=== PATIENT | female | born 1980 | race Caucasian/White ===

== ENCOUNTER → 2021-12-13 09:19 | Outpatient (BNVA) | payer OTHER, SELFPAY | PROVIDERS: Visit Provider Physician Assistant | DX: Z13.89 Encounter for screening for other disorder (principal) ==

== ENCOUNTER → 2021-12-16 10:48 | Outpatient (BNVA) | payer OTHER, SELFPAY | PROVIDERS: Visit Provider Physician Assistant | DX: E66.01 Morbid (severe) obesity due to excess calories (principal); Z11.0 Encounter for screening for intestinal infectious diseases; I10 Essential (primary) hypertension; Z68.43 Body mass index [BMI] 50.0-59.9, adult | CPT/HCPCS: 99202; 99211 ==

== ENCOUNTER 2021-12-16 14:11 | Outpatient (REF) | payer OTHER, SELFPAY ==
[2021-12-19 11:45] LABS: H Pylori Breath Test Negative (Negative)
== END 2021-12-16 14:12 | disposition home or self-care (01) ==
LOC: HO.LNP 14:11
PROVIDERS: Visit Provider Physician Assistant
DX: Z01.818 Encounter for other preprocedural examination (principal); E66.01 Morbid (severe) obesity due to excess calories; I10 Essential (primary) hypertension
CPT/HCPCS: 83013

== ENCOUNTER → 2022-01-03 10:00 | Outpatient (BNVA) | payer OTHER, SELFPAY | PROVIDERS: Visit Provider Counselor Mental Health | DX: F43.22 Adjustment disorder with anxiety (principal); E66.01 Morbid (severe) obesity due to excess calories | CPT/HCPCS: 90791 ==

== ENCOUNTER → 2022-01-17 12:56 | Outpatient (BNVA) | payer OTHER, SELFPAY | PROVIDERS: Visit Provider Physician Assistant | DX: E66.01 Morbid (severe) obesity due to excess calories (principal); Z68.43 Body mass index [BMI] 50.0-59.9, adult | CPT/HCPCS: 99212 ==

== ENCOUNTER → 2022-01-18 08:07 | Outpatient (BNVA) | payer OTHER, SELFPAY | PROVIDERS: Visit Provider Dietitian, Registered | DX: E66.01 Morbid (severe) obesity due to excess calories (principal); Z68.43 Body mass index [BMI] 50.0-59.9, adult | CPT/HCPCS: 97802 ==

== ENCOUNTER 2022-02-14 09:08 | Outpatient (REF) | payer OTHER, SELFPAY ==
--- NOTE | ~2022-02-14 | US_ITS ---
EXAMINATION: US COMPLETE ABDOMEN WITH LIVER ELASTOGRAPHY CLINICAL INFORMATION: Obesity COMPARISON: None. TECHNIQUE: Real-time imaging of the abdominal viscera. Noninvasive ultrasound liver fibrosis assessment is performed using Zayda ElastPQ point quantification shear wave elastography (2D-SWE) with a C5-2 MHz transducer. Multiple elastography samples are obtained. Exam is limited due to patient body habitus. FINDINGS: PANCREAS: The visualized pancreatic head and body are normal in appearance. The remainder of the pancreas is obscured from visualization by the overlying bowel gas. ABDOMINAL AORTA: The proximal, middle, and distal aortic segments are normal in caliber. INFERIOR VENA CAVA: Visualized portions are normal. LIVER: Normal. The liver demonstrates normal size, contour and echogenicity. No focal lesion or intrahepatic biliary duct dilatation. The right lobe measures 17 cm in length. The left lobe measures 12 cm in length. Portal flow is normal/hepatopedal Shear wave liver elastography median stiffness is 1.5 m/s (reference: normal median stiffness is 1.3 m/s or less). IQR/median stiffness to assess sampling precision is 0.2 (reference: good quality data set is IQR/median stiffness of 0.15 or less). GALLBLADDER: Surgically removed COMMON BILE DUCT: Normal in caliber measuring 0.3 cm in diameter. RIGHT KIDNEY: Normal. No hydronephrosis. No renal calculi or focal parenchymal lesions. The kidney measures 11.4 cm in maximum dimension. LEFT KIDNEY: Normal. No hydronephrosis. No renal calculi or focal parenchymal lesions. The kidney measures 12.6 cm in maximum dimension. SPLEEN: Normal. The spleen measures 10.1 cm in maximum dimension. FREE FLUID: None. US/US abdomen comp w elastography IMPRESSION: 1. Impression: Limited due to patient body habitus. Particular, the tail the pancreas is not well visualized. 2. Liver elastography: Slightly limited due to sampling error. In the absence of other known clinical signs, rules out compensated advanced chronic liver disease. REFERENCE: Society of Radiologists in Ultrasound Liver Stiffness Thresholds (2020): LIVER STIFFNESS THRESHOLDS: *Liver Stiffness equal or less than 1.3 m/s: High probability of being normal. *Liver Stiffness less than 1.7 m/s: In the absence of other known clinical signs, rules out compensated advanced chronic liver disease. *Liver Stiffness 1.7-2.1 m/s: Suggestive of compensated advanced chronic liver disease but need further test for confirmation. *Liver Stiffness over 2.1 m/s: Rules in compensated advanced chronic liver disease. *Liver Stiffness over 2.4 m/s: Suggestive of clinically significant portal hypertension. QUALITY OF DATA SET: *IQR/Median value equal or less than 0.15 implies a quality data set. *IQR/Median value over 0.15 implies a poor quality data set. SIGNIFICANT CHANGE FROM PRIOR EXAM: Significant change if liver stiffness measurement is 10% or greater from prior exam. OTHER CONSIDERATIONS: The stage of liver fibrosis may be overestimated in the setting of acute hepatitis, liver inflammation, elevated liver function tests, hepatic vascular congestion, obstructive cholestasis, non-fasting state, and infiltrative diseases such as amyloidosis and lymphoma. In some patients with NAFLD, the liver stiffness thresholds for compensated advanced chronic liver disease may be lower. In causes other than viral hepatitis and NAFLD, liver stiffness thresholds are not well established.
--- NOTE | ~2022-02-14 | XR_ITS ---
EXAMINATION: XR CHEST CLINICAL INFORMATION: Preprocedural exam COMPARISON: Previous chest x-ray May 2018 TECHNIQUE: 2 views of the chest were obtained. FINDINGS: The cardiac and mediastinal contours are normal. The lungs are clear. There is no pleural effusion or pneumothorax. There are degenerative changes of the spine. XR/XR chest 2V IMPRESSION: No evidence for acute disease in the chest.
--- NOTE | ~2022-02-14 | FL_ITS ---
EXAMINATION: XR FLUOROSCOPY UPPER GI WITH AIR CLINICAL INFORMATION: Obesity. Preprocedural evaluation. COMPARISON: None TECHNIQUE: Routine upper GI air-contrast study was performed in upright and lying position. FINDINGS: Following oral administration of thick barium and effervescent granules there is normal propagation of bolus from the oral cavity through the pharynx, esophagus into stomach without any evidence of obstruction, narrowing or stricture. On On placing patient supine and prone lying the course, caliber and peristalsis of the stomach and the duodenum is normal. There is mild gastroesophageal reflux without hiatal hernia. The mucosal pattern of the stomach, duodenal bulb and the sweep is normal. FLUOROSCOPY TIME: 1.4 minutes DOSE AREA PRODUCT: 98.867 uGy-m2 (microgray-meter squared) FL/FL upper GI w air IMPRESSION: Unremarkable upper GI exam except for mild gastroesophageal reflux. No hiatal hernia seen.
--- NOTE | 2022-02-14 11:55 | ECG_ITS ---
Test Reason : Z01.818 Blood Pressure : / mmHG Vent. Rate : 079 BPM Atrial Rate : 079 BPM P-R Int : 154 ms QRS Dur : 076 ms QT Int : 410 ms P-R-T Axes : 029 040 087 degrees QTc Int : 470 ms Normal sinus rhythm Nonspecific ST and T wave abnormality When compared with ECG of 29-MAY-2018 11:33, Nonspecific ST and T wave abnormality present- Referred By: Melissa Clark Electronically Signed By:BIPIN EDMONDS
== END 2022-02-14 09:09 | disposition home or self-care (01) ==
LOC: HO.US 09:08
PROVIDERS: PCP Internal Medicine; Visit Provider Physician Assistant
DX: Z01.818 Encounter for other preprocedural examination (principal); E66.01 Morbid (severe) obesity due to excess calories; I10 Essential (primary) hypertension
CPT/HCPCS: 71046; 74246; 76705; 76981; 93005

== ENCOUNTER → 2022-03-01 09:21 | Outpatient (BNVA) | payer OTHER, SELFPAY | PROVIDERS: PCP Internal Medicine; Referring Provider Physician Assistant; Visit Provider Dietitian, Registered | DX: E66.01 Morbid (severe) obesity due to excess calories (principal); Z71.3 Dietary counseling and surveillance | CPT/HCPCS: 97803 ==

== ENCOUNTER → 2022-03-22 09:32 | Outpatient (BNVA) | payer OTHER, SELFPAY | PROVIDERS: PCP Internal Medicine; Visit Provider Physician Assistant | DX: E66.01 Morbid (severe) obesity due to excess calories (principal); Z68.43 Body mass index [BMI] 50.0-59.9, adult; I10 Essential (primary) hypertension | CPT/HCPCS: 99212 ==

== ENCOUNTER → 2022-05-31 10:20 | Outpatient (BNVA) | payer OTHER, SELFPAY | PROVIDERS: PCP Internal Medicine; Visit Provider Physician Assistant | DX: E66.01 Morbid (severe) obesity due to excess calories (principal); Z68.43 Body mass index [BMI] 50.0-59.9, adult; I10 Essential (primary) hypertension | CPT/HCPCS: 99212 ==

== ENCOUNTER 2024-09-09 10:23 | Outpatient (REF) | payer OTHER, SELFPAY ==
[2024-09-09 14:34] LABS: MANUAL DIFF FLAG NO
[2024-09-09 14:39] LABS: Basophils Absolute Auto 0.1 X10*3/uL (0.0-0.2); Basophils Percent Auto 1.2 % (0-2); Eosinophils Absolute Auto 0.1 X10*3/uL (0.0-0.4); Hematocrit 39.2 % (37.0-47.0); Hemoglobin 12.4 g/dl (12.0-16.0); Imm Gran Abs Auto 0.02 X10*3/uL (0.00-0.03); Imm Gran Pct Auto 0.3 % (0.0-0.4); Lymphocytes Absolute Auto 1.9 X10*3/uL (1.2-4.9); Lymphocytes Percent Auto 27.4 % (20-40); Mean Corpuscular HGB Conc 31.6 g/dl (31.0-35.0); Mean Corpuscular Hemoglobin 28.8 pg (27.0-33.0); Mean Corpuscular Volume 91.2 fL (80.0-98.0); Mean Platelet Volume 10.6 fL (9.4-12.3); Monocytes Absolute Auto 0.7 X10*3/uL (0.1-1.2); Monocytes Percent Auto 9.5 % (2-11); Neutrophils Absolute Auto 4.1 x10*3/uL (2.0-8.3); Neutrophils Percent Auto 59.6 % (45-73); Platelet Count 345 X10*3/uL (160-400); Red Cell Distribution Width 17.1 % (11.0-16.0); White Blood Count 6.9 X10*3/uL (4.8-10.8)
[2024-09-09 14:46] LABS: Estimated Average Glucose 111 mg/dL; Hemoglobin A1C 119.6772 umol/L; Hemoglobin A1c % 5.5 % (<6.0); Total Hemoglobin (HGBA1C) 3254.2465 umol/L
[2024-09-09 14:56] LABS: Alanine Aminotransferase 12 U/L (0-31); Albumin Level 3.9 g/dL (3.5-5.0); Alkaline Phosphatase 67 U/L (39-117); Anion Gap 9 (12-20); Aspartate Amino Transferase 21 U/L (5-31); Bilirubin Total 0.6 mg/dL (0.0-1.0); Blood Urea Nitrogen 13 mg/dL (9-16); Calcium 9.5 mg/dL (8.4-10.2); Carbon Dioxide 31 mmol/L (22-29); Chloride 106 mmol/L (96-108); Cholesterol 149 mg/dL (<200); Estimated Glomerular Filt Rate > 60; Glucose Random 90 mg/dL (60-115); HDL Cholesterol 45 mg/dL (>40); Iron 92 mcg/dL (30-160); LDL Cholesterol Calculated 93 mg/dL (<100); Percent Iron Saturation 30 % (15-50); Potassium 3.7 mmol/L (3.3-5.1); Sodium 142 mmol/L (135-145); Total Iron Binding Capacity 311 mcg/dL (228-428); Total Protein 6.9 g/dL (6.5-8.0); Triglycerides 56 mg/dL (<150); Unsaturated Iron Binding 219 ug/dL
[2024-09-09 15:12] LABS: TSH reflex Free T4 2.19 uIU/mL (0.32-4.0)
[2024-09-09 15:24] LABS: Folate 13.6 ng/mL (> or = 4.0); Vitamin B12 401 pg/mL (200-900)
[2024-09-10 03:57] LABS: HIV AB/AG Nonreactive (Nonreactive); HIV Num 1 0.05 S/CO (0.00-0.99); ~HepC Num1 0.13 S/CO (0.00-0.79); ~Hepatitis C Antibody Nonreactive (Nonreactive)
== END 2024-09-09 10:24 | disposition home or self-care (01) ==
LOC: HO.CHCLDS 10:23
PROVIDERS: Visit Provider Internal Medicine
DX: I10 Essential (primary) hypertension (principal); D50.9 Iron deficiency anemia, unspecified
CPT/HCPCS: 36415; 80053; 80061; 82607; 82746; 83036; 83540; 84443; 85025; 86803; 87389

== ENCOUNTER 2025-09-09 09:55 | Outpatient (REF) | payer MEDICAID, SELFPAY ==
--- OUTSIDE RECORDS SUMMARY | 2025-09-09 12:55 | XMS_ITS | Clinical Summary ---
Author Organization [facility] Address [address] [place] [address] Phone Care Team Providers Care Student Name Role Phone Tiffany Gale MD Primary Care Provider [phone] Allergies Active Allergy Reactions Criticality Noted Date Comments Amlodipine 02/23/2023 Penicillins 02/23/2023 Medications acetaminophen (TYLENOL) 500 mg tablet TAKE 2 TABLETS BY MOUTH EVERY 8 HOURS 4 Active carvediloL (COREG) 6.25 mg tablet Take 1 Tablet by mouth 2 times daily (with meals). Active diclofenac-met salicyl-mentho L (DicloPR) 1-30-10 % combo pack,cream and gel Apply topically. Active ibuprofen (ADVIL,MOTRIN) 800 mg tablet Take 1 Tablet by mouth every 8 hours as needed. Active metFORMIN (GLUCOPHAGE) 500 mg tablet Take 1 Tablet by mouth 2 times daily (with meals). Active olmesartan-amL ODIPin-hcthiaz id 40-10-12.5 mg tablet Active pantoprazole (PROTONIX) 40 mg EC tablet TAKE 1 TABLET BY MOUTH DAILY 4 Active wheat dextrin (Benefiber Clear SF, dextrin,) 3 gram/3.5 gram powder in packet Take 4 g by mouth daily. 4 Active zinc glycinate 30 mg capsule Take 1 Capsule by mouth daily. 4 Active NORETHINDRONE ACETATE ORAL Take by mouth. Active ferrous sulfate 324 mg (65 mg elemental iron) EC tablet Take 1 Tablet by mouth daily. Active nystatin (MYCOSTATIN) 100,000 unit/gram powder Apply topically 2 (two) times a day. 15 g 5 04/22/20 Active tirzepatide, weight loss, (Zepbound) 10 mg/0.5 mL injection Inject 0.5 mL (10 mg total) under the skin every 7 (seven) days. 2 mL 5 10/05/19 Active tirzepatide, weight loss, (Zepbound) 5 mg/0.5 mL injection Inject 0.5 mL (5 mg total) under the skin every 7 (seven) days. 2 mL 5 09/05/20 Discontinue d(Dose adjustment) tirzepatide, weight loss, (Zepbound) 7.5 mg/0.5 mL injection Inject 0.5 mL (7.5 mg total) under the skin every 7 (seven) days. 2 mL 5 08/10/20 tirzepatide, weight loss, (Zepbound) 10 mg/0.5 mL injection Inject 0.5 mL (10 mg total) under the skin every 7 (seven) days. 2 mL 5 09/05/20 Discontinue d(Reorder) Active Problems Problem Noted Date Diagnosed Date Binge eating disorder 05/20/2025 Chronic venous stasis 05/19/2025 Headache 05/19/2025 Vitamin D deficiency 05/19/2025 Osteoarthritis of right knee 01/24/2025 Bariatric surgery status 07/30/2024 Chronic pain of right knee 07/11/2024 Class 2 severe obesity due t o excess calories with serious comorbidity and body mass index (BMI) of 39.0 to 39.9 in adult 06/18/2024 Knee osteoarthritis 07/06/2016 Essential hypertension 03/05/2015 Hypothyroidism (acquired) 03/05/2015 Surgical History Surgery Date Site/Laterality Comments OTHER SURGICAL HISTORY PROCEDURE: HISTORY OTHER; COMMENT: c sectioh CHOLECYSTECTOMY PROCEDURE: DE LAPAROSCOPY SURG CHOLECYSTECTOMY Medical History Medical History Date Comments Binge eating disorder DX:Binge e ating disorder Chronic venous stasis DX:Chronic venous stasis Dysfunctional uterine bleeding D X:Dysfunctional uterine bleeding History of varicose veins DX:His tory of varicose veins Essential (primary) hypertension DX:Essential (primary) hypertension Headache DX:Headache Hypothyroidism DX:Hypothyroidis m Iron deficiency anemia DX:Iron d eficiency anemia Osteoarthritis of right knee DX: Osteoarthritis of right knee Severe obesity (CMS/HCC V24, CMS/HCC V28) DX:Severe obesity (HCC) Vitamin D deficiency DX:Vitamin D deficiency Family History Medical History Relation Name Comments Other: heart Mother Relation Name Status Comments Mother Social History Tobacco Use Types Packs/Day Years Used Date Smoking Tobacco: Never Smokeless Tobacco: Never Alcohol Use Standard Drinks/Week Comments Never 0 (1 standard drink = 0.6 oz pur e alcohol) Comments Unknown Sex and Gender Information Value Date Recorded Sex Assigned at Not on file Legal Sex Female 4:54 AM EST Gender Identity Not on file Sexual Orientation Not on file Last Filed Vital Signs Vital Sign Reading Time Taken Comments Blood Pressure 127/82 04/22/2025 11:27 AM EDT Pulse 85 04/22/2025 11:27 AM EDT Temperature 36.8 C (98.3 F) 07/30/2024 8:57 AM EST Respiratory Rate - - Oxygen Saturation - - Inhaled Oxygen Concentration - - Weight 110 kg (241 lb 9.6 oz) 04/22/2025 11:27 A M EDT Height 167.6 cm (5' 6 ) 04/22/2025 11:27 AM EDT Body Mass Index 39 04/22/2025 11:27 AM EDT Plan of Treatment Upcoming Encounters Date Type Department Care Team (Late st Contact Info) Description 09/15/2025 3:15 PM EST Office Visit Bariatric Surgery - [address] [place] [address] [facility] Sim PA [address] [place] [phone] Health Maintenance Due Date Last Done Comments Breast Cancer Screening 1978 Hepatitis B Vaccines (1 of 3 - 19+ 3-dose series) 1997 Cervical Cancer Screening: Pap Smear 1999 Social Influencers of Health Screening 10/11/2023 Depression Screening 09/11/2024 DTaP,Tdap,and Td Vaccines (2 - Td or Tdap) 02/20/2025 02/20/2015 COVID-19 Vaccine ( season) 2025 08/27/2021, 10/30/2020, 10/09/2020 Influenza Vaccine (#1) 2025 , 10/26/2023, 07/23/2022, Additional history exists Hypertension/CHF/CAD Annual BMP Blood Test 11/05/2025 11/05/2024, 09/09/2024, 05/21/2024, Additional history exists Colorectal Cancer Screening: FIT-DNA (Cologuard) 11/01/2027 11/01/2024 Cholesterol Screening (Lipid Panel) 09/09/2029 09/09/2024, 05/12/2023 RSV Immunization Adult Patients (1 - 1-dose 75+ series) 2053 Pneumococcal Vaccine: Pediatrics (0 to 5 Years) and At-Risk Patients (6 to 49 Years) Aged Out 11/29/2022 No longer eligible based on patient's age to complete this topic HPV Vaccines Completed 03/04/2024, 10/13, 06/06/2023 HIV Screening Completed 09/09/2024 Hepatitis C Screening Completed 09/09/2024 HIB Vaccines Aged Out No longer eligi ble based on patient's age to complete this topic Hepatitis A Vaccines Aged Out No long er eligible based on patient's age to complete this topic IPV Vaccines Aged Out No longer eligi ble based on patient's age to complete this topic MMR Vaccines Aged Out No longer eligi ble based on patient's age to complete this topic Meningococcal ACWY Vaccine Aged Out N o longer eligible based on patient's age to complete this topic Meningococcal B Vaccine Aged Out No l onger eligible based on patient's age to complete this topic RSV Immunization Patients Under 20 months Aged Out No longer eligible based on patient's age to complete this topic Varicella Vaccines Aged Out No longer eligible based on patient's age to complete this topic Procedures Procedure Name Priority Date/Time Associated Diagnosis Comments COMPREHENSIVE METABOLIC PANEL Routine 11/05/2024 10:46 AM EST Class 3 severe obesity due to excess calories with serious comorbidity and body mass index (BMI) of 45.0 to 49.9 in adult (CMS/HCC V24, CMS/HCC V28) LIPID PANEL Routine 05/12/2023 from Last 3 Months or Most Recently Relevant to Health Maintenance Results * Comprehensive metabolic panel (11/05/2024 10:46 AM EST) Sodium 141 133 - 145 mmol/L LAB CHEMISTRY METHOD 11/05/2024 3:32 PM [facility] Potassium 3.7 3.5 - 5.5 mmol/L LAB CHEMISTRY METHOD 11/05/2024 3:32 PM [facility] Chloride 106 96 - 110 mmol/L LAB CHEMISTRY METHOD 11/05/2024 3:32 PM [facility] CO2 27 21 - 32 mmol/L LAB CHEMISTRY METHOD 11/05/2024 3:32 PM [facility] Anion Gap 8 3 - 11 LAB CHEMISTRY METHOD 11/05/2024 3:32 PM [facility] Glucose 81 70 - 100 mg/dL LAB CHEMISTRY METHOD 11/05/2024 3:32 PM [facility] BUN 15 5 - 25 mg/dL LAB CHEMISTRY METHOD 11/05/2024 3:32 PM [facility] Creatinine 0.69 0.50 - 1.10 mg/dL LAB CHEMISTRY METHOD 11/05/2024 3:32 PM [facility] eGFR 109 >=60 mL/min/1. 73m2 LAB CHEMISTRY METHOD 11/05/2024 3:32 PM [facility] Comment:Calculation based on the Chronic Kidney Disease Epidemiology Collaboration (CKD-EPI) equation refit without adjustment for race. BUN/Creatinine Ratio 21.7 LAB CHEMISTRY METHOD 11/05/2024 3:32 PM [facility] Calcium 9.5 8.5 - 10.5 mg/dL LAB CHEMISTRY METHOD 11/05/2024 3:32 PM [facility] AST (SGOT) 13 10 - 42 unit/L LAB CHEMISTRY METHOD 11/05/2024 3:32 PM [facility] ALT (SGPT) 15 10 - 60 unit/L LAB CHEMISTRY METHOD 11/05/2024 3:32 PM [facility] Alkaline Phosphatase 69 42 - 121 unit/L LAB CHEMISTRY METHOD 11/05/2024 3:32 PM [facility] Total Protein 6.8 6.0 - 8.0 g/dL LAB CHEMISTRY METHOD 11/05/2024 3:32 PM [facility] Albumin 3.8 3.2 - 5.0 g/dL LAB CHEMISTRY METHOD 11/05/2024 3:32 PM [facility] Total Bilirubin 0.6 0.0 - 1.4 mg/dL LAB CHEMISTRY METHOD 11/05/2024 3:32 PM [facility] Blood Venous blood specimen / Unknown Venipuncture / Unknown 11/05/2024 10:46 AM EST 11/05/2024 10:46 AM EST [facility] LAB BLOOD ORDERABLES Final R esult [facility] [address] [place] [address], * (ABNORMAL) Lipid panel (05/12/2023) LDL/HDL Ratio 3 0 - 4 Triglycerides 45 0 - 150 mg/dL Cholesterol 130 0 - 200 mg/dL HDL 38(A) >=40 mg/dL LDL Cholesterol 83 0 - 100 mg/dL Blood Venous blood specimen / Unknown Historical Provider LAB BLOOD ORDERABLES Serena l Result from Last 3 Months or Most Recently Relevant to Health Maintenance Insurance MEDICAID - [place] Care Teams Student Relationship Specialty Start Date End Date Tiffany Gale MD [address] [place] [phone] PCP - General Internal Medicine 01/28/25
--- OUTSIDE RECORDS SUMMARY | 2025-09-09 12:55 | XMS_ITS | Encounter Summary ---
Author Organization [employer] Address [address] [place] [address] Care Team Providers Care Producer Director Name Role Phone Vinnie Unger MD Primary Care Prov ider Encounter Details Date Type Department Care Team (Late st Contact Info) Description 10/10/2024 Orders Only [facility] [address] [place] [address] Provider, MD Dashawn Social History Tobacco Use Types Packs/Day Years Used Date Smoking Tobacco: Never Smokeless Tobacco: Never Alcohol Use Standard Drinks/Week Comments Never 0 (1 standard drink = 0.6 oz pur e alcohol) Depression Answer Date Recorded Patient Health Questionnaire-9 Score 0 07/11/2024 Patient Health Questionnaire-9 Score 0 07/11/2024 Last PHQ-9: Questionnaire Data Not on file 1 Housing Stability Answer Date Recorded What is your housing situation today? I have [place] 07/11/[address] you li ve. Do you have problems with any of the following? None of the above 07/11/2024 Food Insecurity Answer Date Recorded Within the past 12 months, y ou worried that your food would run out before you got money to buy more: Never True 07/11/2024 Within the past 12 months,th e food you bought just didn't last and you didn't have enough money to get more: Never True Transportation Answer Date Recorded In the past 12 months, has l ack of transportation kept you from medical appts, meetings, work or from getting things needed for daily living? No 07/11/2024 Utilities Answer Date Recorded In the past 12 months, has t he electric, gas, oil or water company threatened to shut off services in your home? No 07/11/2024 Depression Answer Date Recorded Patient Health Questionnaire-2 Score 0 07/11/2024 Internet Access Answer Date Recorded Internet Access Q1 Yes 07/11/2024 Internet Access Q2 Not on file 07/11/2024 Comments Unknown Sex and Gender Information Value Date Recorded Sex Assigned at Female 07/11/2022 10:28 AM EDT Legal Sex Female 10:28 AM EDT Gender Identity Female 02/23/2024 9:38 AM EDT Sexual Orientation Straight 02/23/2024 9: 38 AM EDT documented as of this encounter Plan of Treatment Not on file documented as of this encounter Procedures Procedure Name Priority Date/Time Associated Diagnosis Comments HM PAP/HPV Routine 01/19/2022 11:03 AM EDT documented in this encounter Results * HM PAP/HPV (01/19/2022 11:03 AM EDT) us Historical Provider HEALTH MAINTENANCE Final Result documented in this encounter Visit Diagnoses Not on filedocumented in this encounter Additional Health Concerns Assessment Noted Time PHQ-9 Depression Total Score: 0 07/11/20 10:00 AM EDT documented as of this encounter Care Teams Producer Director Relationship Specialty Start Date End Date Vinnie Unger MD [address] [place] [phone] PCP - General Internal Medicine 07/12/24 documented as of this encounter
--- OUTSIDE RECORDS SUMMARY | 2025-09-09 12:55 | XMS_ITS | Clinical Summary ---
Author Organization [employer] Address [address] [facility] [address] [place] [address] Care Team Providers Care Inspector Government Property Name Role Phone Vinnie Unger MD Primary Care Prov ider Allergies Active Allergy Reactions Criticality Noted Date Comments Penicillin G 07/11/2024 Medications Blood Pressure kit 1 kit Once per day. 1 kit 4 Active olmesartan-hydr oCHLOROthiazide (Benicar HCT) 20-12.5 MG tablet Take 1 tablet by mouth Once per day. 90 tablet 3 5 03/07/20 26 Active nystatin (Mycostatin) 841903 UNIT/GM powder Apply topically 2 times daily. 120 g 3 5 05/05/20 26 Active ibuprofen 800 MG tablet TAKE 1 TABLET BY MOUTH 3 TIMES DAILY. 90 tablet 5 Active Active Problems Problem Noted Date Diagnosed Date Physical exam 08/19/2024 Assessment & Plan (08/19/2024 1:37 PM EST): Unremarkable physical exam, found with slightly elevated blood pressure, told to continue current oral therapy, keep bp log, new labs ordered, will follow up in 1 month Encounter for medical examination to establish c are 07/11/2024 Assessment & Plan (07/11/2024 11:13 AM EDT): Not seen by pcp in over 8 months Hx of hospitalization: [facility] , sleeve gastrectomy 2023 Er visit:- Pmhx: Chronic severe right knee OA, obesity, htn Pshx: [facility] , cholecystectomy 2001, tonsillectomy 1980, sleeve gastrectomy 2023, All: PNC Meds: carvedilol 6.25mg bid, norethidone 5mg daily, ibuprofen 800mg tid A0 Primary hypertension 07/11/2024 Assessment & Plan (07/10/2025 10:52 AM EDT): Controlled, keep low sodium diet and exercise as tolerated, keep blood pressure log, target <140/90, follow up in 3-4 months Assessment & Plan (01/09/2025 10:55 AM EDT): Controlled, keep low sodium diet and exercise as tolerated, keep bp log, target <140/90, no changes will be made, she continues losing weight which is beneficial on the alf, follow up in 3 months Assessment & Plan (10/01/2024 1:27 PM EST): Contriolled, will decrease treatment, she refers has been taking half pill daily, and her bp results have remained below 140/90, call back if uncntrolled, will follow up in 3 months Assessment & Plan (08/19/2024 1:32 PM EST): Slightly elevated, will send a new bp kit, told to keep low sodium diet, exercise as tolerated, follow up in 1 month with new labs Assessment & Plan (07/11/2024 11:14 AM EDT): Told to keep a bp log for next appointment, keep low sodium diet, she has lost over 100lbs since surgery, will follow up on next visit Chronic pain of right knee 07/11/2024 Assessment & Plan (07/11/2024 11:15 AM EDT): Patient followed by [facility], she is getting steroid injections, has been losing weight, follow up ortho reccomendations Screening for colon cancer 07/11/2024 Assessment & Plan (07/11/2024 11:20 AM EDT): Will refer to GI, for screening colon cancer Encounter for screening mamm ogram for malignant neoplasm of breast 07/11/2024 Assessment & Plan (07/11/2024 11:21 AM EDT): Patient will make schedule for screening mammogram Screening for cervical cancer 07/11/2024 Assessment & Plan (07/11/2024 11:22 AM EDT): Patient had pap smear with ob-box puller, she will bring results on next appoinment, due on 2027 Encounters Date Type Department Care Team Description 08/19/2025 2:45 PM EST Telemedicine [facility] [address] [place] [address] Vinnie Unger MD Primary hypertension (Primary Dx) 08/19/2025 Travel 08/18/2025 Telephone [facility] [address] [place] [address] Vinnie Unger MD chart prep 08/18/2025 Travel from Last 3 Months Immunizations Immunization Administration Dates Next Due Influenza, Injectable, MDCK, preservative free 1 10/20/2023 Family History Medical History Relation Name Comments Hypertension Father Stomach cancer Maternal Grandfather Diabetes Mother Fibromyalgia Mother Heart failure Mother Hypertension Mother Cancer Mother's Brother Relation Name Status Comments Father Maternal Grandfather Mother Mother's Brother Social History Tobacco Use Types Packs/Day Years Used Date Smoking Tobacco: Never Smokeless Tobacco: Never Tobacco Cessation:Counseling Given: Not Answered Alcohol Use Standard Drinks/Week Comments Never 0 (1 standard drink = 0.6 oz pur e alcohol) Depression Answer Date Recorded Patient Health Questionnaire-9 Score 0 08/19/2025 Patient Health Questionnaire-9 Score 0 08/19/2025 Last PHQ-9: Questionnaire Data Not on file 1 10/20/2024 Housing Stability Answer Date Recorded What is your housing situation today? I have [place] 08/19/[address] you li ve. Do you have problems with any of the following? None of the above 08/19/2025 Food Insecurity Answer Date Recorded Within the past 12 months, y ou worried that your food would run out before you got money to buy more: Never True 08/19/2025 Within the past 12 months,th e food you bought just didn't last and you didn't have enough money to get more: Never True 05/2025 Transportation Answer Date Recorded In the past 12 months, has l ack of transportation kept you from medical appts, meetings, work or from getting things needed for daily living? No 08/19/2025 Utilities Answer Date Recorded In the past 12 months, has t he electric, gas, oil or water company threatened to shut off services in your home? No 08/19/2025 Depression Answer Date Recorded Patient Health Questionnaire-2 Score 0 08/19/2025 Internet Access Answer Date Recorded Internet Access Q1 Yes 08/19/2025 Internet Access Q2 Not on file 08/19/2025 Comments Unknown Sex and Gender Information Value Date Recorded Sex Assigned at Female 07/11/2022 10:28 AM EDT Legal Sex Female 10:28 AM EDT Gender Identity Female 02/23/2024 9:38 AM EDT Sexual Orientation Straight 02/23/2024 9: 38 AM EDT Last Filed Vital Signs Vital Sign Reading Time Taken Comments Blood Pressure 114/77 08/19/2025 2:48 PM EST Pulse 72 08/19/2024 9:40 AM EST Temperature 36.8 C (98.3 F) 08/19/2024 9:40 AM EST Respiratory Rate 16 08/19/2024 9:40 AM EST Oxygen Saturation - - Inhaled Oxygen Concentration - - Weight 121 kg (266 lb) 01/09/2025 10:50 AM EDT Height 167.6 cm (5' 6 ) 08/19/2024 9:40 AM EST Body Mass Index 42.93 08/19/2024 9:40 AM EST Plan of Treatment Health Maintenance Due Date Last Done Comments CT Colonography 1978 Colonoscopy 1978 FIT 1978 Sigmoidoscopy 1978 Alcohol/Substance Use Screening 1990 Family Planning (PISQ) 1993 Mammogram 2018 DTaP/Tdap/Td Vaccines (2 - Td or Tdap) 02/20/2025 02/20/2015 COVID-19 Vaccine ( season) 2025 08/27/2021, 10/30/2020, 10/09/2020 Hepatitis B Vaccines (2 of 2 - CpG 2-dose series) 08/13/2025 07/16/2025 Tobacco Screening 08/19/2025 08/19/2024 FOBT 11/01/2025 11/01/2024 Disability Screening 08/18/2026 08/18/2025 Depression Screening 08/19/2026 08/19/2025, 08/19/20 25 SDOH Screening 08/19/2026 08/19/2025 Cervical Cancer Screening 01/19/2027 HPV/Cotest 01/19/2027 Pap Smear 01/19/2027 01/19/2022 Colorectal Cancer Screening 11/01/2027 FIT DNA/Cologuard 11/01/2027 11/01/2024 Zoster Vaccines (1 of 2) 2028 Lipid Panel 09/09/2029 09/09/2024 RSV Patients and Patients Aged 60 years or older (1 - 1-dose 75+ series) 2053 Pneumococcal Vaccine: Pediatrics (0 to 5 Years) and At-Risk Patients (6 to 49) Years Aged Out 11/29/2022 No longer eligible based on patient's age to complete this topic HPV Vaccines Completed 03/04/2024, 02/10, 11/01/2023, Additional history exists HIV Screening Completed 09/09/2024 Hepatitis C Screening Completed 09/09/2024 Influenza Vaccine Completed 07/16/2025, , 10/26/2023, Additional history exists HIB Vaccines Aged Out No longer eligi [...] patient's age to complete this topic Meningococcal Vaccine Aged Out No miguel angel damaris eligible based on patient's age to complete this topic RSV under 20 months Aged Out No longe r eligible based on patient's age to complete this topic Rotavirus Vaccines Aged Out No longer eligible based on patient's age to complete this topic Procedures Procedure Name Priority Date/Time Associated Diagnosis Comments LAB COLOGUARD COLON CANCER SCREEN Routine 11/01/2024 5:31 PM EST Screening for colon cancer HEPATITIS C AB W/REFL TO HCV RNA, QN, PCR Routine 09/09/2024 10:24 AM EST Primary hypertension HIV 1/2 ANTIGEN/ANTIBODY, FOURTH GENERATION W/RFL Routine 09/09/2024 10:24 AM EST Primary hypertension LIPID PANEL, STANDARD Routine 09/09/2024 10:24 AM EST Primary hypertension HM PAP/HPV Routine 01/19/2022 11:03 AM EDT from Last 3 Months or Most Recently Relevant to Health Maintenance Results * Cologuard?? colon cancer screening (11/01/2024 5:31 PM EST) Pathologist [facility] Cologuard Result Negative Negative 11/06/19 7:53 AM EST [employer] (CLIA #:[id number]) Comment: NEGATIVE TEST RESULT. A negative Cologuard result indicates a low likelihood that a colorectal cancer (CRC) or advanced adenoma (adenomatous polyps with more advanced pre-malignant features) is present. The chance that a person with a negative Cologuard test has a colorectal cancer is less than 1 in 1500 (negative predictive value >99.9%) or has an advanced adenoma is less than 5.3% (negative predictive value 94.7%). These data are based on a prospective cross-sectional study of 10,000 individuals at average risk for colorectal cancer who were screened with both Cologuard and colonoscopy. (Tawana Maya al, N Engl J Med 2014;370(14):2903-6716) The normal value (reference range) for this assay is negative. COLOGUARD RE-SCREENING RECOMMENDATION: Periodic colorectal cancer screening is an important part of preventive healthcare for asymptomatic individuals at average risk for colorectal cancer. Following a negative Cologuard result, the [place] [employer] and U.S. Multi-Society Task Force screening guidelines recommend a Cologuard re-screening interval of 3 years. References: [place] [employer] Guideline for Colorectal Cancer Screening: https://www.cancer.org/cancer/uppac-nhmkgx-bisjoy/giqbgtaui-lyrgfffcr-hyzsxht/ac s-rec ommendations.html.; Wu DK, Christa CR, Zane DIAZ, Colorectal Cancer Screening: Recommendations for Physicians and Patients from the U.S. Multi-Society Task Force on Colorectal Cancer Screening , Am J Gastroenterology 2017; 112:9370-5425. TEST DESCRIPTION: Composite algorithmic analysis of stool DNA-biomarkers with hemoglobin immunoassay. Quantitative values of individual biomarkers are not reportable and are not associated with individual biomarker result reference ranges. Cologuard is intended for colorectal cancer screening of adults of either sex, 45 years or older, who are at average-risk for colorectal cancer (CRC). Cologuard has been approved for use by the U.S. FDA. The performance of Cologuard was established in a cross sectional study of average-risk adults aged 50-84. Cologuard performance in patients ages 45 to 49 years was estimated by sub-group analysis of near-age groups. Colonoscopies performed for a positive result may find as the most clinically significant lesion: colorectal cancer [4.0%], advanced adenoma (including sessile serrated polyps greater than or equal to 1cm diameter) [20%] or non- advanced adenoma [31%]; or no colorectal neoplasia [45%]. These estimates are derived from a prospective cross-sectional screening study of 10,000 individuals at average risk for colorectal cancer who were screened with both Cologuard and colonoscopy. (Tawana Dorman et al, N Engl J Med 2014;370(14):7243-2170.) Cologuard may produce a false negative or false positive result (no colorectal cancer or precancerous polyp present at colonoscopy follow up). A negative Cologuard test result does not guarantee the absence of CRC or advanced adenoma (pre-cancer). The current Cologuard screening interval is every 3 years. ([place] [employer] and U.S. Multi-Society Task Force). Cologuard performance data in a 10,000 patient pivotal study using colonoscopy as the reference method can be accessed at the following location: www.[employer].com/results. Additional description of the Cologuard test process, warnings and precautions can be found at www.[employer].com. Stool specimen (specimen) 11/01/2024 5:31 PM EST 11/04/2024 11:12 AM EST Vinnie Hair MD LAB MOLECULAR DIAG NOSTICS ORDERABLES Final Result Performing Organization Address City/[facility]/ZIP Co de Phone Number [facility] (CLIA #:[id number]) [address] [place] [address], * Hepatitis C Antibody with Reflex to HCV, RNA, Quantitative, Real-Time PCR (09/09/2024 10:24 AM EST) Hepatitis C Antibody Nonreactive Nonreactive [facility] Comment:Antibodies to HCV no t detected; does not exclude early acuteHCV infection. Blood Venous blood specimen / Unknown 09/09/2024 10:24 AM EST 09/09/2024 2:31 PM EST Vinnie Hair MD LAB BLOOD ORDERABL ES Final Result Performing Organization Address [facility]/ZIP Co de Phone Number [facility] [address] [place] [phone] * HIV-1/2 Antigen and Antibodies, Fourth Generation, with Reflexes (09/09/2024 10:24 AM EST) HIV AB/AG Nonreactive Nonreactive [facility] Comment:HIV-1 p24 Ag and/or HIV-1/HIV-2 Ab not detected.A test result that is nonreactive does not exclude thepossibility of exposure to or infection with HIV-1 and/orHIV-2. Nonreactive results in this assay for individualswith prior exposure to HIV-1 and/or HIV-2 may be due toantigen and antibody levels that are below the limit ofdetection of this assay.The [employer] HIV Ag/Ab Combo assay result andsupplemental assay results should be interpreted inconjunction with the patient's clinical presentation,history and other laboratory results. If the results areinconsistent with clinical evidence, additional testing issuggested to confirm the result. Blood Venous blood specimen / Unknown 09/09/2024 10:24 AM EST 09/09/2024 2:31 PM EST Vinnie Hair MD LAB BLOOD ORDERABL ES Final Result Performing Organization Address [facility] de Phone Number [facility] [address] [place] [phone] * Lipid Panel, Standard (09/09/2024 10:24 AM EST) Triglycerides 56 <150 mg/dL [facility] Comment:Desirable Triglyceri de: less than 150 mg/dLBorderline High Triglyceride 150-199 mg/dLHigh Triglyceride: 200-499 mg/dLVery High Triglyceride: greater than or equal to 5OO mg/dL Cholesterol 149 <200 mg/dL [facility] Comment:Desirable Cholestero l: less than 200 mg/dLBorderline High Cholesterol: 200-239 mg/dLHigh Cholesterol: greater than 239 mg/dL LDL Cholesterol Calculated 93 <100 mg/dL [facility] Comment:Desirable LDL: less than 100 mg/dLNear Optimal/Above Optimal LDL: 110- 129 mg/dLBorderline High LDL: 130-159 mg/dLHigh LDL: 160-189 mg/dLVery High LDL: greater than or equal to 190 mg/dL HDL Cholesterol 45 >40 mg/dL [facility] Comment:Desirable HDL: great er than 40 mg/dL Note: This HDL assay may give artificially low results in patients with liver disease. Blood Venous blood specimen / Unknown 09/09/2024 10:24 AM EST 09/09/2024 2:31 PM EST Vinnie Hair MD LAB BLOOD ORDERABL ES Final Result Performing Organization Address [facility]/ZIP Co de Phone Number [facility] [address] [place] [phone] * HM PAP/HPV (01/19/2022 11:03 AM EDT) Historical Provider HEALTH MAINTENANCE Final Result from Last 3 Months or Most Recently Relevant to Health Maintenance Insurance [facility] C3 Care Teams Inspector Government Property Relationship Specialty Start Date End Date Vinnie Unger MD [address] [place] [phone] PCP - General Internal Medicine 07/12/24
--- OUTSIDE RECORDS SUMMARY | 2025-09-09 12:55 | XMS_ITS | Encounter Summary ---
Author Organization [employer] Address [address] [facility] [address] [place] [address] Care Team Providers Care Molded Frames Assembler Name Role Phone Vinnie Unger MD Primary Care Prov ider Reason for Visit * Reason Onset Date Comments Med Refill 02/24/2025 Encounter Details Date Type Department Care Team ([facility] st Contact Info) Description 02/24/2025 Refill [facility] [address] [place] [address] Vinnie Unger MD [address] [place] [phone] Social History Tobacco Use Types Packs/Day Years [...] on file documented as of this encounter Visit Diagnoses Not on filedocumented in this encounter Additional Health Concerns Assessment Noted Time PHQ-9 Depression Total Score: 0 07/11/20 10:00 AM EDT documented as of this encounter Care Teams Molded Frames Assembler Relationship Specialty Start Date End Date Vinnie Unger MD [address] [place] [phone] PCP - General Internal Medicine 07/12/24 documented as of this encounter
[2025-09-09 15:09] LABS: MANUAL DIFF FLAG NO
[2025-09-09 15:19] LABS: Hematocrit 40.1 % (37.0-47.0); Hemoglobin 13.1 g/dl (12.0-16.0); Imm Gran Abs Auto 0.01 X10*3/uL (0.00-0.03); Imm Gran Pct Auto 0.2 % (0.0-0.4); Lymphocytes Absolute Auto 1.6 X10*3/uL (1.2-4.9); Mean Corpuscular HGB Conc 32.7 g/dl (31.0-35.0); Mean Corpuscular Hemoglobin 31.9 pg (27.0-33.0); Mean Corpuscular Volume 97.6 fL (80.0-98.0); NRBC Abs Auto 0.000 X10*3/uL (0.0-0.012); NRBC Pct Auto 0.0 /100WBC (0.0-0.2); Platelet Count 287 X10*3/uL (160-400); Red Blood Count 4.11 X10*6/uL (4.20-5.50); White Blood Count 5.2 X10*3/uL (4.8-10.8)
[2025-09-09 15:56] LABS: Alanine Aminotransferase 27 U/L (0-31); Albumin Level 4.3 g/dL (3.5-5.0); Alkaline Phosphatase 53 U/L (39-117); Anion Gap 10 (12-20); Aspartate Amino Transferase 34 U/L (5-31); Blood Urea Nitrogen 14 mg/dL (9-16); Calcium 9.4 mg/dL (8.4-10.2); Carbon Dioxide 28 mmol/L (22-29); Chloride 106 mmol/L (96-108); Cholesterol 129 mg/dL (<200); Estimated Glomerular Filt Rate > 60; HDL Cholesterol 43 mg/dL (>40); Potassium 3.0 mmol/L (3.3-5.1); Sodium 141 mmol/L (135-145); Total Protein 6.8 g/dL (6.5-8.0); Triglycerides 36 mg/dL (<150)
== END 2025-09-09 09:56 | disposition home or self-care (01) ==
LOC: HO.CHCLDS 09:55
PROVIDERS: Visit Provider Internal Medicine
DX: I10 Essential (primary) hypertension (principal)
CPT/HCPCS: 36415; 80053; 80061; 84443; 85025